=== PATIENT | female | born 1935 | race Caucasian/White ===

== ENCOUNTER 2023-07-12 20:26 | Emergency (ER) | payer MEDICAID, OTHER ==
[~2023-07-12] VITALS: Ht 152.4 cm; Wt 95.3 kg
[2023-07-12 21:01] VITALS: BP_SYST 160; PULSE 78; RESP 16; TEMP 98.5; O2SAT 96
[2023-07-12] MEDS: KETOROLAC TROMETHAMINE 30 MG VIAL IM ONE (21:38)
[2023-07-12 23:15] LABS: BILIRUBIN,URINE NEGATIVE (NEGATIVE); BLOOD, URINE NEGATIVE (NEGATIVE); CLARITY/URINE CLEAR (CLEAR); COLOR,URINE YELLOW (YELLOW); GLUCOSE,URINE NEGATIVE (NEGATIVE); KETONES,URINE TRACE (NEGATIVE); LEUKOCYTE ESTERASE ,URINE NEGATIVE (NEGATIVE); NITRITE, URINE NEGATIVE (NEGATIVE); PROTEIN URINE 2+ (NEGATIVE); UROBILINOGEN,URINE 0.2 (0.2-1.0)
[2023-07-12] MEDS ORDERED: ACET-2634 PO (23:30)
[2023-07-12 23:36] LABS: BACTERIA,URINE RARE /HPF (None Seen)
[2023-07-13 06:53] VITALS: BP_SYST 153; PULSE 51; RESP 16; TEMP 98.5; O2SAT 97
== END 2023-07-13 06:23 | disposition home or self-care (01) ==
LOC: SED 20:26
DX: S30.0XXA Contusion of lower back and pelvis, initial encounter (principal); S20.229A Contusion of unspecified back wall of thorax, initial encounter; Z79.899 Other long term (current) drug therapy; W06.XXXA Fall from bed, initial encounter; Y93.89 Activity, other specified; Y92.89 Other specified places as the place of occurrence of the external cause; Y99.8 Other external cause status
CPT/HCPCS: 99285; 81001; 93005; 72072; 72100; 96372; 81000; 81015; J1885